=== PATIENT | female | born 1955 | race Caucasian/White ===

== ENCOUNTER 2025-07-13 09:46 | Day surgery (SDC) | payer MEDICARE, OTHER ==
[~2025-07-13] VITALS: Ht 165.1 cm; Wt 53.6 kg
[~2025-07-13 09:46] MED LIST: IBLOOD GLUCOSE TEST STRIP 1 EA TEST VI PRN; LACTATED RINGER'S 1,000 ML IV SCH; LIDOCAINE HCL 1% 5 ML SDV INJ ONE; MIDAZOLAM HCL 5 MG/5 ML VIAL IV PRN; fentaNYL citrate 100 MCG/2 ML VIAL IV PRN
[2025-07-13 10:07] VITALS: BP 130/65
--- NOTE | 2025-07-13 11:13 | NUR ---
requested warm blanket second one put on. update for wait given. denies any other needs. s o at bs.
[2025-07-13] MEDS ORDERED: MIDAZOLAM HCL 5 MG/5 ML VIAL ONE (11:29)
[2025-07-13] MEDS ORDERED: fentaNYL citrate 100 MCG/2 ML VIAL ONE (11:30)
--- NOTE | 2025-07-13 12:30 | NUR ---
07/13/25 1230 Kasey Coles 1219- PT ARRIVES TO PACU AWAKE LOOKING AROUND. PT HAS A NATURAL AIRWAY AND DENIES PAIN AND NAUSEA. BEDSIDE REPORT RECIEVED. LR INFUSING. PT RESTING COMFORTABLY. ALL MONITORS PUT IN PLACE. VSS.
[2025-07-13 12:48] VITALS: BP 131/66
--- NOTE | 2025-07-14 16:22 | OR ---
[facility] [address], [place] [address] Signed DATE OF OPERATION: 07/13/2025 SURGEON: Saud Ellison MD PREOPERATIVE DIAGNOSIS: Family history of colon cancer (mother). POSTOPERATIVE DIAGNOSIS: Flat polyp of rectum at 10 cm excised. PROCEDURE: Total colonoscopy to cecum with cold snare polypectomy x1. ANESTHESIA: Intravenous sedation, fentanyl 100 mcg, and Versed 5 mg. INDICATION: This 69-year-old white woman is a patient of Dr. Santiago and well known to me from the past. Last undergone colonoscopy in 2014. Her mother had colon cancer at age 63. Previous colonoscopy in 2005 had been normal. She is currently symptom free having no bleeding, diarrhea, or constipation. She is admitted to undergo surveillance colonoscopy, understands the risk of bleeding, infection, and perforation. FINDINGS: The prep was excellent. Complete colonoscopy was undertaken to the cecum without question. She had a flat polyp, which was well visualized with narrow band imaging. This was located in the rectum at about 10 cm from the anal verge and was excised completely with cold snare technique. There were no other findings of note throughout the colon. DESCRIPTION OF PROCEDURE: The patient was brought to the endoscopy suite and placed in lateral decubitus position, given intravenous sedation to the point of slurred speech and nystagmus. Full cardiopulmonary monitoring was maintained. Digital rectal examination was normal. An Olympus video colonoscope was passed in the rectum and manipulated throughout the colon ultimately intubating the cecum itself. The ileocecal valve and appendiceal orifice were normal. The scope was withdrawn. Examination showed no sign of abnormality into the rectum at about 10 cm from the anal verge where a subtle (initially) flat polyp was noted. Narrow band imaging defined it quite well, however. Electronically Signed By: SAUD ELLISON MD 07/14/25 1622 PATIENT NAME: PATRIZIA SINCLAIR OPERATIVE REPORT DATE OF : 53 REPORT #: [id number] PHYSICIAN: SAUD ELLISON MD PCP: MALINI SANTIAGO MD REPORT IS CONFIDENTIAL AND NOT TO BE RELEASED WITHOUT AUTHORIZATION [facility] [address], [place] [address] Signed Using cold snare technique, the polyp was excised completely. There was no untoward bleeding. Remaining the rectum was normal. Scope was removed. The patient was taken to the recovery room in good condition having suffered no complication. CONCLUDING DIAGNOSIS: Flat polyp of rectum excised. PLAN: Recommend repeat colonoscopy in 5 years, sooner if symptoms should develop. MD FERNANDO Robert/NORI /[id number] cc: Malini Santiago MD Copies: MALINI SANTIAGO DMD ~ Electronically Signed By: SAUD ELLISON MD 07/14/25 1622 PATIENT NAME: PATRIZIA SINCLAIR OPERATIVE REPORT DATE OF : 53 REPORT #: [id number] PHYSICIAN: SAUD ELLISON MD PCP: MALINI SANTIAGO MD REPORT IS CONFIDENTIAL AND NOT TO BE RELEASED WITHOUT AUTHORIZATION
--- NOTE | 2025-07-17 12:10 | PATH ---
[facility] [address] [place], [place] [address] Signed SPECIMEN(S): A RECTAL POLYP SPECIMEN SOURCE: A. RECTAL POLYP CLINICAL HISTORY: Screening family history of colon cancer. FINAL PATHOLOGIC DIAGNOSIS: Rectal polyp: - Tubular adenoma (one fragment). JVR:clv MICROSCOPIC EXAMINATION: Histologic sections of all submitted blocks are examined by light microscopy. These findings, together with the gross examination, support the pathologic diagnosis. GROSS DESCRIPTION: The specimen, labeled and designated "Shorts, D, 1." and designated on the requisition "rectum polypectomy," is received in formalin and consists of one persaud polypoid soft tissue fragment that is 0.9 x 0.4 x 0.4 cm. The specimen is inked, trisected, and entirely submitted in (A1). FB (under the direct supervision of a pathologist) The Gross Description was prepared using a voice recognition system. The report was reviewed for accuracy; however, sound-alike word errors, addition and/or deletions may occur. If there is any question about this report, please contact Client Services. PERFORMING LABORATORY: Technical component was performed by [facility], [address] [place] [id number] (CLIA# [id number]). Professional interpretation was performed by [facility], [address] [place] [id number] (CLIA#: [id number]). Diagnostician: Sascha Cisse MD Pathologist Electronically Signed 07/17/2025 Copies: PATIENT NAME: PATRIZIA SINCLAIR PATHOLOGY DATE OF : 53 REPORT #: [id number] PHYSICIAN: [facility] PCP: MALINI SANTIAGO MD REPORT IS CONFIDENTIAL AND NOT TO BE RELEASED WITHOUT AUTHORIZATION [address] [address] Signed ~ PATIENT NAME: PATRIZIA SINCLAIR PATHOLOGY DATE OF : 53 REPORT #: [id number] PHYSICIAN: [facility] PCP: MALINI SANTIAGO MD REPORT IS CONFIDENTIAL AND NOT TO BE RELEASED WITHOUT AUTHORIZATION
== END 2025-07-13 13:00 | disposition home or self-care (01) ==
LOC: DS 09:46
PROVIDERS: ATTEND Surgery
PROC: 0DBP8ZZ Excision of Rectum, Via Natural or Artificial Opening Endoscopic (ICD-10-PCS; principal; 2025-07-13 11:15)
DX: Z12.11 Encounter for screening for malignant neoplasm of colon (principal); D12.8 Benign neoplasm of rectum; Z87.891 Personal history of nicotine dependence; Z98.51 Tubal ligation status; Z80.0 Family history of malignant neoplasm of digestive organs
CPT/HCPCS: 99153; G0500; J2250; J3010; J7121